=== PATIENT | female | born 1995 | race Caucasian/White ===

== ENCOUNTER 2018-07-31 05:24 | Observation (INO) | payer BC, OTHER ==
[2018-07-31] MEDS ORDERED: ONDANSETRON 4 MG INJ (06:23)
[2018-07-31] MEDS ORDERED: PROPOFOL 20 ML (06:23)
[2018-07-31] MEDS ORDERED: ROCURONIUM 50 MG INJ (06:23)
[2018-07-31] MEDS ORDERED: MIDAZOLAM 1 MG/ML 2 ML INJ (06:23)
[2018-07-31] MEDS ORDERED: FENTAnyl 50 MCG/ML VIAL ×2 (06:23→08:13)
[2018-07-31] MEDS ORDERED: NEOSTIGMINE 3 MG/3 ML SYRINGE (06:23)
[2018-07-31] MEDS ORDERED: DEXAMETHASONE 4 MG/ML 1 ML INJ (06:23)
[2018-07-31] MEDS ORDERED: LIDOCAINE 2% (SDV) 5 ML INJ (06:23)
[2018-07-31] MEDS ORDERED: GLYCOPYRROLATE 0.4 MG INJ (06:23)
[2018-07-31] MEDS ORDERED: SUGAMMADEX SODIUM 200 MG/2 ML VIAL IV ×2 (06:24→11:07)
[2018-07-31] MEDS ORDERED: LABETALOL HCL 20MG INJ IV (06:30)
[2018-07-31] MEDS ORDERED: hydrALAzine 20 MG INJ IV (06:30)
[2018-07-31] MEDS ORDERED: FENTAnyl 50 MCG/ML VIAL IV ×2 (06:30)
[2018-07-31] MEDS ORDERED: OXYCODONE/ACETAMINOPHEN (5/325) TAB PO ×2 (06:30)
[2018-07-31] MEDS ORDERED: HYDROmorphONE 1 MG/5 ML IV SYRINGE IV ×2 (06:30)
[2018-07-31] MEDS ORDERED: MEPERIDINE 25 MG INJ IV (06:30)
[2018-07-31] MEDS ORDERED: DIPHENHYDRAMINE 50 MG INJ IV (06:30)
[2018-07-31] MEDS ORDERED: ONDANSETRON 4 MG INJ IV (06:30)
[2018-07-31] MEDS ORDERED: MIDAZOLAM 1 MG/ML 2 ML INJ IV (06:30)
[2018-07-31] MEDS ORDERED: ATROPINE 1 MG/10 ML SYRINGE IV (06:30)
[2018-07-31] MEDS ORDERED: EPHEDrine SULFATE 50 MG/5 ML SYG IV (06:30)
[2018-07-31] MEDS ORDERED: morphine (1 MG/ML) 10ML SYRINGE IV ×3 (06:30)
[2018-07-31] MEDS ORDERED: SUCCINYLCHOLINE CHLORIDE 100 MG/5 ML SYG IV (06:31)
[2018-07-31] MEDS ORDERED: ROPIVACAINE 0.5 % 30 ML VIAL ×2 (06:50→06:59)
[2018-07-31] MEDS ORDERED: CEFAZOLIN 1 GM INJ (07:00)
[2018-07-31] MEDS ORDERED: NEOMYC/POLYMYX/BACIT 30 GM OINT (07:04)
[2018-07-31] MEDS ORDERED: LIDOCAINE 0.5% (MDV) 50 ML INJ (07:04)
[2018-07-31] MEDS ORDERED: morphine SULFATE/PF (10 MG/10 ML) INJ (07:04)
[2018-07-31] MEDS ORDERED: DIPHENHYDRAMINE 25 MG CAP PO (08:00)
[2018-07-31] MEDS: ACETAMINOPHEN 500 MG TAB PO ×3 (08:00→20:28)
[2018-07-31] MEDS ORDERED: CEFAZOLIN 1 GM INJ IV (08:00)
[2018-07-31] MEDS: GABAPENTIN 300 MG CAP PO ×3 (09:00→20:28)
[2018-07-31] MEDS: HYDROmorphONE 1 MG/5 ML IV SYRINGE IV ×2 (11:54→12:08)
[2018-07-31] MEDS: HEPARIN 1000 UNITS/ML 10 ML INJ (12:57)
[2018-07-31] MEDS: BUPIVACAINE 0.5% (SDV) 30 ML INJ (12:57)
[2018-07-31] MEDS: POLYMYXIN/BACITRACIN 1L IRRIG (12:57)
[2018-07-31] MEDS: oxyCODONE 5 MG TAB PO ×2 (15:00→20:31)
[2018-07-31] MEDS: CEFAZOLIN 1 GM/50 ML (PMX) 50 ML IVPB ×2 (16:30→17:20)
[2018-08-01] MEDS: ACETAMINOPHEN 500 MG TAB PO ×4 (01:18→20:20)
[2018-08-01] MEDS: CEFAZOLIN 1 GM/50 ML (PMX) 50 ML IVPB ×3 (01:18→16:59)
[2018-08-01] MEDS: oxyCODONE 5 MG TAB PO ×3 (05:18→15:31)
[2018-08-01] MEDS: ONDANSETRON 4 MG INJ IV ×2 (06:53→10:17)
[2018-08-01] MEDS: GABAPENTIN 300 MG CAP PO ×3 (08:56→20:20)
[2018-08-01] MEDS: SCOPOLAMINE 1.5 MG PATCH TRANSDERM (13:49)
[2018-08-01] MEDS: RIVAROXABAN 10 MG TABLET PO (17:00)
[2018-08-02] MEDS: CEFAZOLIN 1 GM/50 ML (PMX) 50 ML IVPB (00:45)
[2018-08-02] MEDS: ACETAMINOPHEN 500 MG TAB PO ×2 (02:00→08:56)
[2018-08-02] MEDS: GABAPENTIN 300 MG CAP PO (08:56)
== END 2018-08-02 13:00 | disposition home or self-care (01) ==
LOC: SDS 05:24 → MS1 12:19 → SDS 12:18 → MS1 17:10
DX: T84.84XA Pain due to internal orthopedic prosthetic devices, implants and grafts, initial encounter (principal); M96.0 Pseudarthrosis after fusion or arthrodesis; D36.13 Benign neoplasm of peripheral nerves and autonomic nervous system of lower limb, including hip; M94.262 Chondromalacia, left knee; M24.10 Other articular cartilage disorders, unspecified site; Y83.8 Other surgical procedures as the cause of abnormal reaction of the patient, or of later complication, without mention of misadventure at the time of the procedure; Y83.9 Surgical procedure, unspecified as the cause of abnormal reaction of the patient, or of later complication, without mention of misadventure at the time of the procedure
CPT/HCPCS: 20680; 73562; 82306; 88300; 97110; 97116; 97161; 97530

== ENCOUNTER 2019-02-02 08:26 | Day surgery (SDC) | payer BC ==
[~2019-02-02 08:26] MED LIST: CEFAZOLIN 1 GM INJ; GLYCOPYRROLATE 0.4 MG INJ; LIDOCAINE 2% (SDV) 5 ML INJ; NEOSTIGMINE 3 MG/3 ML SYRINGE; PROPOFOL 200 MG INJ; ROCURONIUM 50 MG INJ; SUCCINYLCHOLINE CHLORIDE 100 MG/5 ML SYG IV
[2019-02-02] MEDS ORDERED: LACTATED RINGER'S 1,000 ML IV (10:00)
[2019-02-02] MEDS ORDERED: MEPERIDINE 25 MG INJ IV (11:30)
[2019-02-02] MEDS ORDERED: DIPHENHYDRAMINE 50 MG INJ IV (11:30)
[2019-02-02] MEDS ORDERED: ALBUTEROL 0.083% (NEB) 2.5 MG/3 ML AMP HHN (11:30)
[2019-02-02] MEDS ORDERED: METOCLOPRAMIDE 10 MG INJ IV (11:30)
[2019-02-02] MEDS ORDERED: HYDROmorphONE 1 MG/5 ML IV SYRINGE IV ×2 (11:30)
[2019-02-02] MEDS ORDERED: FENTAnyl 50 MCG/ML VIAL IV ×2 (11:30)
[2019-02-02] MEDS ORDERED: ROPIVACAINE 0.5 % 30 ML VIAL (11:35)
[2019-02-02] MEDS ORDERED: FENTAnyl 50 MCG/ML VIAL (11:35)
[2019-02-02] MEDS ORDERED: morphine 2 MG INJ IV (12:00)
[2019-02-02] MEDS ORDERED: KETOROLAC 30 MG INJ IV (12:00)
[2019-02-02] MEDS: POLYMYXIN/BACITRACIN 1L IRRIG IRR (12:22)
[2019-02-02] MEDS ORDERED: PROVENTIL HFA 6.7GM INHALER (13:17)
[2019-02-02] MEDS: HYDROmorphONE 1 MG/5 ML IV SYRINGE IV (13:59)
[2019-02-02] MEDS: ONDANSETRON 4 MG INJ IV (13:59)
== END 2019-02-02 15:00 | disposition home or self-care (01) ==
LOC: SDS 08:26
DX: T84.84XA Pain due to internal orthopedic prosthetic devices, implants and grafts, initial encounter (principal); Y83.9 Surgical procedure, unspecified as the cause of abnormal reaction of the patient, or of later complication, without mention of misadventure at the time of the procedure; L91.0 Hypertrophic scar; S76.112A Strain of left quadriceps muscle, fascia and tendon, initial encounter; X58.XXXA Exposure to other specified factors, initial encounter
CPT/HCPCS: 20680; 73562; 82306; 88300; 88304